=== PATIENT | male | born 1975 | race Caucasian/White ===

== ENCOUNTER 2025-03-08 16:01 | Emergency (ER) | payer MEDICAID, OTHER ==
[2025-03-08] MEDS: Pseudoephedrine 30 MG Tab PO ONE (17:42)
[2025-03-08] MEDS: Terbutaline 1 MG/ML SDV SUBCUT ONE (18:57)
[2025-03-08 19:25] LABS: APPEARANCE,URINE CLEAR; BILIRUBIN,URINE NEGATIVE (NEGATIVE); COLOR,URINE YELLOW; GLUCOSE,URINE NEGATIVE (NEGATIVE); KETONES,URINE TRACE mg/dL (NEGATIVE); LEUKOCYTE ESTERASE,URINE NEGATIVE (NEGATIVE); NITRITE,URINE NEGATIVE (NEGATIVE); OCCULT BLOOD,URINE NEGATIVE (NEGATIVE); PROTEIN,URINE NEGATIVE (NEGATIVE)
== END 2025-03-08 20:04 | disposition home or self-care (01) ==
LOC: MW.ED 16:01
DX: N48.30 Priapism, unspecified (principal); Z79.84 Long term (current) use of oral hypoglycemic drugs; Z79.899 Other long term (current) drug therapy
CPT/HCPCS: 81003; 96372; 99283; A9270; J3105

== ENCOUNTER 2025-03-09 19:49 | Emergency (ER) | payer MEDICAID, OTHER ==
[2025-03-09] MEDS: Pseudoephedrine 30 MG Tab PO ONE (20:53)
[2025-03-09] MEDS: Terbutaline 1 MG/ML SDV SUBCUT ONE (20:53)
== END 2025-03-09 22:31 | disposition home or self-care (01) ==
LOC: MW.ED 19:49
DX: N48.33 Priapism, drug-induced (principal); Z79.899 Other long term (current) drug therapy
CPT/HCPCS: 96372; 99283; A9270; J3105

== ENCOUNTER 2025-04-05 08:55 | Emergency (ER) | payer MEDICAID ==
[2025-04-05] MEDS ORDERED: Sodium Chloride 0.9% 2.5 ML Syringe FLUSH PRN (09:53)
[2025-04-05] MEDS ORDERED: Sodium Chloride 0.9% 10 ML Syringe FLUSH PRN (09:53)
[2025-04-05] MEDS ORDERED: Fluticasone NASAL Spray 16 GM Bottle ONE (09:55)
[2025-04-05 10:37] LABS: BASOPHILS ABSOLUTE AUTO 0.06 K/uL (0.00-0.20); BASOPHILS PERCENT AUTO 0.7 % (0.0-1.0); EOSINOPHILS ABSOLUTE AUTO 0.23 K/uL (0.00-0.45); EOSINOPHILS PERCENT AUTO 2.8 % (0.0-6.0); IMMATURE GRAN ABSOLUTE AUTO 0.04 K/uL (0.00-0.05); IMMATURE GRAN PERCENT AUTO 0.5 % (0.0-0.4); LYMPHOCYTES ABSOLUTE AUTO 2.14 K/uL (1.00-4.80); LYMPHOCYTES PERCENT AUTO 26.2 % (24.0-44.0); MEAN PLATELET VOLUME 8.8 fL (9.4-12.4); MONOCYTES ABSOLUTE AUTO 0.64 K/uL (0.00-0.80); MONOCYTES PERCENT AUTO 7.8 % (0.0-8.0); NEUTROPHILS ABSOLUTE AUTO 5.05 K/uL (1.80-7.70); NEUTROPHILS PERCENT AUTO 62.0 % (41.0-71.0); NRBC ABSOLUTE 0.00 K/uL (0.00-0.02); NRBC PERCENT 0.0 /100WBC (0.0-0.2); PLATELET COUNT,PLT 195 K/uL (150-400); RED BLOOD CELL COUNT 5.28 M/uL (4.52-5.90); WHITE BLOOD CELL COUNT,WBC 8.16 K/uL (3.9-11.3)
[2025-04-05 10:50] LABS: APPEARANCE,URINE CLEAR; GLUCOSE,URINE NEGATIVE (NEGATIVE); OCCULT BLOOD,URINE NEGATIVE (NEGATIVE)
[2025-04-05] MEDS: Fluticasone NASAL Spray 16 GM Bottle NASBOTH ONE (11:06)
[2025-04-05 11:13] LABS: LACTIC ACID 2.1 mmol/L (0.4-2.0)
[2025-04-05 11:14] LABS: A/G RATIO 1.2 (0.9-1.6); ALANINE AMINOTRANSFERASE,ALT 26 IU/L (14-63); ASPARTATE AMNIOTRANSFERASE,AST 19 IU/L (15-37); BILIRUBIN TOTAL 0.7 mg/dL (0.2-1.0); BLOOD UREA NITROGEN,BUN 7 mg/dL (7.0-18.0); CARBON DIOXIDE,CO2 33.8 mmol/L (21.0-32.0); CHLORIDE,CL 100 mmol/L (98-107); CREATININE 1.1 mg/dL (0.8-1.3); EST CRCL DRUG DOSING (CG) 90.80 mL/min; ESTIMATED GFR 82 mL/min (>60); GLUCOSE RANDOM 128 mg/dL (74-106); POTASSIUM,K 3.7 mmol/L (3.5-5.1); PRO B-TYPE NATRIUR PEPT,BNPPRO < 5 pg/mL (0-125); PROTEIN TOTAL,TP 7.2 g/dL (6.4-8.2); SODIUM,NA 140 mmol/L (136-148)
[2025-04-05] MEDS: Iopamidol 755 MG/ML 500 ML Multipack Bottle IVPUSH STA (11:39)
== END 2025-04-05 14:31 | disposition home or self-care (01) ==
LOC: MW.ED 08:55
DX: J06.9 Acute upper respiratory infection, unspecified (principal); Z79.84 Long term (current) use of oral hypoglycemic drugs; Z79.899 Other long term (current) drug therapy
CPT/HCPCS: 36415; 71046; 71275; 80053; 81003; 83605; 83735; 83880; 84484; 85025; 94640; 96360; 99285; J7040; J7620; Q9967; 99283; A9270-GY

== ENCOUNTER 2025-04-12 10:16 | Emergency (ER) | payer MEDICAID ==
[2025-04-12 10:34] LABS: BASOPHILS ABSOLUTE AUTO 0.05 K/uL (0.00-0.20); BASOPHILS PERCENT AUTO 0.6 % (0.0-1.0); EOSINOPHILS ABSOLUTE AUTO 0.21 K/uL (0.00-0.45); EOSINOPHILS PERCENT AUTO 2.5 % (0.0-6.0); IMMATURE GRAN ABSOLUTE AUTO 0.03 K/uL (0.00-0.05); IMMATURE GRAN PERCENT AUTO 0.4 % (0.0-0.4); LYMPHOCYTES ABSOLUTE AUTO 1.92 K/uL (1.00-4.80); LYMPHOCYTES PERCENT AUTO 23.1 % (24.0-44.0); MEAN PLATELET VOLUME 8.8 fL (9.4-12.4); MONOCYTES ABSOLUTE AUTO 0.60 K/uL (0.00-0.80); MONOCYTES PERCENT AUTO 7.2 % (0.0-8.0); NEUTROPHILS ABSOLUTE AUTO 5.49 K/uL (1.80-7.70); NEUTROPHILS PERCENT AUTO 66.2 % (41.0-71.0); NRBC ABSOLUTE 0.00 K/uL (0.00-0.02); NRBC PERCENT 0.0 /100WBC (0.0-0.2); PLATELET COUNT,PLT 179 K/uL (150-400); RED BLOOD CELL COUNT 5.01 M/uL (4.52-5.90); WHITE BLOOD CELL COUNT,WBC 8.30 K/uL (3.9-11.3)
[2025-04-12 10:43] LABS: INR 1.13 (0.86-1.11)
[2025-04-12 11:10] LABS: A/G RATIO 1.1 (0.9-1.6); ALANINE AMINOTRANSFERASE,ALT 14 IU/L (14-63); ASPARTATE AMNIOTRANSFERASE,AST 14 IU/L (15-37); BILIRUBIN TOTAL 0.7 mg/dL (0.2-1.0); BLOOD UREA NITROGEN,BUN 8 mg/dL (7.0-18.0); CARBON DIOXIDE,CO2 31.8 mmol/L (21.0-32.0); CHLORIDE,CL 100 mmol/L (98-107); CREATININE 1.2 mg/dL (0.8-1.3); EST CRCL DRUG DOSING (CG) 85.63 mL/min; GLUCOSE RANDOM 167 mg/dL (74-106); POTASSIUM,K 3.7 mmol/L (3.5-5.1); PRO B-TYPE NATRIUR PEPT,BNPPRO 9 pg/mL (0-125); PROTEIN TOTAL,TP 7.1 g/dL (6.4-8.2); SODIUM,NA 139 mmol/L (136-148); TSH ULTRASENSITIVE 0.65 uIU/mL (0.36-3.74)
[2025-04-12 11:14] LABS: ESTIMATED GFR 74 mL/min (>60)
== END 2025-04-12 11:51 | disposition home or self-care (01) ==
LOC: MW.ED 10:16
DX: J06.9 Acute upper respiratory infection, unspecified (principal); H66.91 Otitis media, unspecified, right ear; Z75.3 Unavailability and inaccessibility of health-care facilities; Z79.899 Other long term (current) drug therapy; Z79.51 Long term (current) use of inhaled steroids
CPT/HCPCS: 36415; 71045; 71045-26; 80053; 83735; 83880; 84443; 84484; 85025; 85610; 87651; 93005; 93010; 99283; 99285

== ENCOUNTER 2025-04-19 15:53 | Emergency (ER) | payer MEDICAID ==
[2025-04-19 16:16] LABS: BASOPHILS ABSOLUTE AUTO 0.08 K/uL (0.00-0.20); BASOPHILS PERCENT AUTO 0.8 % (0.0-1.0); EOSINOPHILS ABSOLUTE AUTO 0.24 K/uL (0.00-0.45); EOSINOPHILS PERCENT AUTO 2.3 % (0.0-6.0); IMMATURE GRAN ABSOLUTE AUTO 0.05 K/uL (0.00-0.05); IMMATURE GRAN PERCENT AUTO 0.5 % (0.0-0.4); LYMPHOCYTES ABSOLUTE AUTO 2.09 K/uL (1.00-4.80); LYMPHOCYTES PERCENT AUTO 20.1 % (24.0-44.0); MEAN PLATELET VOLUME 9.1 fL (9.4-12.4); MONOCYTES ABSOLUTE AUTO 0.82 K/uL (0.00-0.80); MONOCYTES PERCENT AUTO 7.9 % (0.0-8.0); NEUTROPHILS ABSOLUTE AUTO 7.11 K/uL (1.80-7.70); NEUTROPHILS PERCENT AUTO 68.4 % (41.0-71.0); NRBC ABSOLUTE 0.00 K/uL (0.00-0.02); NRBC PERCENT 0.0 /100WBC (0.0-0.2); PLATELET COUNT,PLT 205 K/uL (150-400); RED BLOOD CELL COUNT 5.07 M/uL (4.52-5.90); WHITE BLOOD CELL COUNT,WBC 10.39 K/uL (3.9-11.3)
[2025-04-19] MEDS: methylPREDNISolone Sodium Succinate 125 MG/2 ML SDV IVPUSH ONE (16:25)
[2025-04-19] MEDS: cefTRIAXone 1 GM in Water For Injection, Sterile 10 ML IVPUSH ONE (16:25)
[2025-04-19 16:57] LABS: A/G RATIO 1.1 (0.9-1.6); ALANINE AMINOTRANSFERASE,ALT 26 IU/L (14-63); ASPARTATE AMNIOTRANSFERASE,AST 24 IU/L (15-37); BILIRUBIN TOTAL 1.0 mg/dL (0.2-1.0); BLOOD UREA NITROGEN,BUN 7 mg/dL (7.0-18.0); CARBON DIOXIDE,CO2 30.8 mmol/L (21.0-32.0); CHLORIDE,CL 101 mmol/L (98-107); CREATININE 1.1 mg/dL (0.8-1.3); EST CRCL DRUG DOSING (CG) 90.80 mL/min; GLUCOSE RANDOM 144 mg/dL (74-106); POTASSIUM,K 4.3 mmol/L (3.5-5.1); PROTEIN TOTAL,TP 7.1 g/dL (6.4-8.2); SODIUM,NA 138 mmol/L (136-148)
[2025-04-19 17:01] LABS: LACTIC ACID 1.7 mmol/L (0.4-2.0)
[2025-04-19 17:01] LABS: ESTIMATED GFR 82 mL/min (>60); PRO B-TYPE NATRIUR PEPT,BNPPRO < 5 pg/mL (0-125)
== END 2025-04-19 18:35 | disposition home or self-care (01) ==
LOC: MW.ED 15:53
DX: G47.33 Obstructive sleep apnea (adult) (pediatric) (principal); Z75.3 Unavailability and inaccessibility of health-care facilities; Z79.84 Long term (current) use of oral hypoglycemic drugs; Z79.899 Other long term (current) drug therapy; Z79.51 Long term (current) use of inhaled steroids; Z99.89 Dependence on other enabling machines and devices
CPT/HCPCS: 36415; 71045; 80053; 83605; 83880; 84484; 85025; 85379; 87040; 87428; 93005; 94640; 96361; 96374; 96375; 99285; J0696; J2919; J7030; J7620; 93010; 99283; A9270-GY